=== PATIENT | female | born 1955 | race Caucasian/White ===

== ENCOUNTER 2018-05-17 06:10 | Day surgery (SDC) | payer OTHER ==
[2018-05-16 10:41] LABS: HEMATOCRIT 42.2 % (36.0-48.0); HEMOGLOBIN 14.2 g/dL (12-16); MCH 31.2 pg (26.0-34.0); MCHC 33.6 g/dL (31.0-37.0); MCV 92.7 fL (80.0-100.0); MEAN PLATELET VOLUME 10.1 fL (7.4-10.4); RBC 4.55 10x6/uL (4.00-5.40); RDW 12.1 % (11.5-14.5); WBC 6.8 10x3/uL (4.8-10.8)
[~2018-05-17] VITALS: Ht 160 cm; Wt 88.0 kg
[2018-05-17] MEDS ORDERED: TIROSINT (06:18)
[2018-05-17] MEDS ORDERED: PREMARIN0.3 MG PO (06:18)
[2018-05-17] MEDS ORDERED: VITAMIN D250000 UNIT PO (06:19)
[2018-05-17] MEDS ORDERED: MULTI-DAY VITAM1 TAB PO (06:20)
[2018-05-17 06:26] VITALS: BP 119/75; Ht 160 cm; Wt 88.0 kg
--- NOTE | 2018-05-24 08:11 | OP ---
PATIENT NAME: KAITLIN RIZVI MEDICAL RECORD: [id number] :59 LOCATION:D.OPS ADMISSION DATE: SURGEON: RICHAR CHRISTIAN DPM DATE OF OPERATION: 05/17/2018 PREOPERATIVE DIAGNOSES: 1. Hallux abductovalgus, left foot. 2. Instability, left first met cuneiform joint. POSTOPERATIVE DIAGNOSES: 1. Hallux abductovalgus, left foot. 2. Instability, left first met cuneiform joint. PROCEDURES: 1. Colón bunionectomy, left foot. 2. First met cuneiform joint fusion, left foot. ANESTHESIA: General with local infiltrate utilizing lidocaine and Marcaine plain, 1:1 mix, 20 cc total. HEMOSTASIS: Left thigh tourniquet at 350 mmHg. PREOPERATIVE DETAILS: The patient was taken to the OR, placed on the operating table in a supine position. This was followed by induction of general anesthesia and infiltration of local anesthetic. The left extremity was then prepped and draped in usual aseptic technique followed by exsanguination and inflation of tourniquet. A 15 blade was used to create an incision from the dorsal aspect of the medial cuneiform distally to the base of the proximal phalanx of the hallux. The incision was deepened down through subcutaneous tissue to the first MPJ where an inverted L capsulotomy was performed. The medial capsular flap was reflected and the first metatarsal was delivered. A sagittal saw was used to resect the medial eminence. Attention was then directed to the first interspace where a lateral release was performed. PROCEDURE #2: First met cuneiform joint fusion. Utilizing the incision as described in #1, it was deepened down to the periosteum where a linear periosteal incision was made exposing the dorsal aspect of the medial cuneiform as well as the dorsal aspect of the first metatarsal and delivering the first metatarsal cuneiform joint. A sagittal saw was used to resect the joint followed by temporary fixation. Excellent alignment was noted and a 5-hole plate with 1 hole crossing the fusion site was placed. C-arm was used to verify good placement as well as alignment. The wound was flushed. The periosteum as well as the joint capsule was repaired with 2-0 Vicryl, the subcutaneous tissue with 4-0 Rapide and the skin was closed with 4-0 Rapide in a subcuticular technique followed by Dermabond. Adaptic, 4 x 4 and Conform were used to dress the wound followed by application of modified Rodriguez compression dressing. Tourniquet was deflated. POSTOPERATIVE DETAILS: The patient tolerated the procedure well and left the OR with vital signs stable and vascular status at preoperative levels. The patient was transported to recovery per anesthesia in stable condition. TRANSINT:[id number] Voice Confirmation ID: [id number] DOCUMENT ID: [id number] OPERATIVE REPORT [id number] KAITLIN RIZVI MCKAY DPM at 0811 CC: [id number] DICTATION DATE: 05/17/18 0836 [employer] SUPERVISOR: 05/17/[address] [facility] 05/17/[address] [id number]
== END 2018-05-17 11:06 | disposition home or self-care (01) ==
LOC: D.OPS 06:10 → D.PAN 07:00 → D.OPS 07:00
PROVIDERS: Anesthesiology
DX: M20.12 Hallux valgus (acquired), left foot (principal); M25.375 Other instability, left foot; Z01.812 Encounter for preprocedural laboratory examination

== ENCOUNTER 2019-02-09 08:00 | Outpatient (CLI) | payer OTHER ==
[2018-05-17 06:26] VITALS: BMI 34.4
[~2019-02-09 08:00] MED LIST: MULTI-DAY VITAM1 TAB PO; PREMARIN0.3 MG PO; TIROSINT; VITAMIN D250000 UNIT PO
== END 2019-02-09 23:59 | disposition home or self-care (01) ==
LOC: D.MAMMO 08:00
PROVIDERS: ATTEND Emergency Medicine
DX: Z12.31 Encounter for screening mammogram for malignant neoplasm of breast (principal)

== ENCOUNTER 2020-02-11 15:30 | Outpatient (CLI) | payer OTHER ==
[2018-05-17 06:26] VITALS: BMI 34.4
== END 2020-02-11 23:59 | disposition home or self-care (01) ==
LOC: D.MAMMO 15:30
PROVIDERS: ATTEND Clinical Nurse Specialist Family Health
DX: Z12.31 Encounter for screening mammogram for malignant neoplasm of breast (principal)